=== PATIENT | male | born 1990 | race Hispanic/Latino ===

== ENCOUNTER 2018-06-07 07:45 | Outpatient (CLI) | payer OTHER ==
--- NOTE | 2018-06-07 08:02 | RAD ---
RIGHT HAND THREE VIEWS: History: Right hand pain. Comparison: 04-05-08 FINDINGS: Joint spaces are preserved. Old healed injuries of the third metacarpal and the distal radius are par tially visualized. No acute fracture, dislocation, or aggressive osseous erosions. IMPRESSION: No acute osseous abnormalities are demonstrated. POS: [facility]
== END 2018-06-07 07:46 | disposition home or self-care (01) ==
LOC: RAD-FRANK 07:45
PROVIDERS: ATTEND Nurse Practitioner Family
DX: M79.641 Pain in right hand (principal)

== ENCOUNTER 2019-08-28 09:10 | Outpatient (CLI) | payer OTHER ==
--- NOTE | 2019-08-28 09:23 | RAD ---
Exam: XR Knee Rt 4 View STANDARD HISTORY: Right knee pain after a fall. COMPARISON: None FINDINGS: Scattered osteophytes are seen about the knee. A superior patellar enthesophyte is identified. No acute fracture, dislocation, or other acute osseous abnormality is identified. The lateral view is rotated which limits evaluation, but there is question of a small joint effusion. IMPRESSION: 1. No acute osseous abnormality. 2. Suggestion of small joint effusion. If there is concern for internal derangement, MRI right knee c an be performed for further evaluation.
--- NOTE | 2019-08-28 09:51 | RAD ---
THREE VIEWS LEFT WRIST: DATE: 08/28/2019. COMPARISON: None. HISTORY: Pain, fall. FINDINGS: No widening of the scapholunate interval. No displaced fracture or dislocation. Alignment appears normal on the lateral view. IMPRESSION: No displaced fracture or dislocation seen. If symptoms persistent, followup in 7-10 days with dedica itz scaphoid views advised. POS: [facility]
== END 2019-08-28 09:11 | disposition home or self-care (01) ==
LOC: RAD-FRANK 09:10
PROVIDERS: ATTEND Nurse Practitioner Family
DX: M25.561 Pain in right knee (principal); M25.532 Pain in left wrist